=== PATIENT | female | born 1965 | race Caucasian/White ===

== ENCOUNTER 2023-03-16 15:35 | Emergency (ER) | payer BC, OTHER ==
[~2023-03-16] VITALS: Ht 165.1 cm; Wt 107.0 kg
[2023-03-16 15:35] VITALS: BP 119/64
[2023-03-16] MEDS ORDERED: HYDROcodone/APAP 5/325 MG 1 TAB TAB PO ONE (15:45)
--- NOTE | 2023-03-16 17:23 | NUR ---
TO BED 3 VIA WC
[2023-03-16] MEDS ORDERED: HYDROcodone/APAP 5/325 MG 1 TAB TAB ONE (17:44)
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
--- NOTE | 2023-03-16 19:14 | NUR ---
Received report from [facility] and continue care of patient.
[2023-03-16] MEDS ORDERED: ACET-10509 PO (21:45)
[2023-03-16] MEDS ORDERED: LID5T TP (21:45)
[2023-03-16] MEDS ORDERED: ACET-8905 PO (21:45)
--- NOTE | 2023-03-16 21:57 | NUR ---
Patient returned back from CT scan.
[2023-03-16 22:40] VITALS: BP 114/62
--- NOTE | 2023-03-16 22:40 | NUR ---
Patient discharged with v/s stable. Written and verbal after care instructions given and explained. Patient alert, oriented and verbalized understanding of instructions. Ambulatory with steady gait. All questions addressed prior to discharge. ID band removed. Patient advised to follow up with PMD. Rx of Tylenol, [place] and Lidocaine given. Patient educated on indication of medication including possible reaction and side effects. Opportunity to ask questions provided and answered.
== END 2023-03-16 22:40 | disposition home or self-care (01) ==
LOC: EDBD 15:35 → MED 15:35
DX: S09.90XA Unspecified injury of head, initial encounter (principal); Z79.899 Other long term (current) drug therapy; V49.88XA Car occupant (driver) (passenger) injured in other specified transport accidents, initial encounter; Y93.89 Activity, other specified; Y92.89 Other specified places as the place of occurrence of the external cause; Y99.8 Other external cause status
CPT/HCPCS: 70450; 72125; 99284